=== PATIENT | female | born 1960 | race Caucasian/White ===

== ENCOUNTER → 2017-04-02 | Outpatient (CLI) | payer BC ==
[2015-03-20 13:10] VITALS: BP 159/84
--- NOTE | 2017-04-03 10:36 | US ---
HISTORY: Right-sided right back nodule Study: Ultrasound right-sided back nodule Comparison: None Technique: Multiple grayscale sonographic images were obtained. Findings: Sonographic evaluation was focused to a palpable nodule in the subcutaneous area of the right back. Resulting images demonstrated a 1.4 by 1 x 2.1 centimeter well-marginated hyperechoic subcutaneous n odule which appears nonvascular. This finding would seem most consistent with a lipoma. This area sh ould be followed clinically. Any rapid growth should prompt tissue sampling. IMPRESSION: Findings most consistent with a subcutaneous lipoma which should be followed clinically. Any rapid g rowth should prompt tissue sampling. Reported By:
== END ==
LOC: RAD 13:17
PROVIDERS: ATTEND Internal Medicine
DX: R19.09 Other intra-abdominal and pelvic swelling, mass and lump (principal)
CPT/HCPCS: 76705

== ENCOUNTER 2023-01-19 14:01 | Observation (INO) ==
[2023-01-19] MEDS ORDERED: LEVSIN/MAALOX/LIDOC VISC PO PRN (15:13)
[2023-01-19 15:35] LABS: BASOPHILS # (AUTO) 0.1 X10^3/uL (0.0-0.1); BASOPHILS % (AUTO) 0.9 % (0.2-1.0); EOSINOPHILS # (AUTO) 0.3 x10^3/uL (0.0-0.2); EOSINOPHILS % (AUTO) 3.5 % (0.9-2.9); HEMOGLOBIN 13.2 g/dL (12.0-16.0); LYMPHOCYTES # (AUTO) 2.6 X10^3/uL (1.3-2.9); LYMPHOCYTES % (AUTO) 31.8 % (21.0-51.0); MEAN CORPUSCULAR HEMOGLOBIN 29.7 pg (27.0-34.0); MEAN CORPUSCULAR HGB CONC 33.7 g/dL (33.0-35.0); MEAN PLATELET VOLUME 8.3 fL (7.4-11.0); MONOCYTES # (AUTO) 0.6 x10^3/uL (0.3-0.8); MONOCYTES % (AUTO) 7.4 % (0.0-13.0); NEUTROPHILS # (AUTO) 4.6 x10^3/uL (2.2-4.8); NEUTROPHILS % (AUTO) 56.4 % (42.0-75.0); RED BLOOD COUNT 4.43 X10^6/uL (3.5-5.4); WHITE BLOOD COUNT 8.1 X10^3/uL (3.6-10.0)
[2023-01-19 15:59] LABS: ALANINE AMINOTRANSFERASE 24 Units/L (12-78); ALBUMIN 3.7 g/dL (3.4-5.0); ALKALINE PHOSPHATASE 75 Units/L (46-116); AMYLASE 64 Units/L (25-115); ASPARTATE AMINO TRANSFERASE 16 Units/L (15-37); BLOOD UREA NITROGEN 23 mg/dL (7-18); CALCIUM 9.1 mg/dL (8.5-10.1); CARBON DIOXIDE 32.3 mmol/L (21-32); CHLORIDE 103 mmol/L (98-107); COR NA(FOR HYPERGLY) 142 mmol/L (136-145); CREATININE 0.97 mg/dL (0.55-1.02); LIPASE 195 Units/L (73-393); SODIUM 141 mmol/L (136-145); TOTAL PROTEIN 7.7 g/dL (6.4-8.2); eGFR NON BLACK RACES > 60 (>60)
[2023-01-19] MEDS: NS 1,000 ML IV 1,000 ML IV SCH (18:34)
[2023-01-19] MEDS: PROTONIX INJ 40 MG VIAL IVP SCH (18:35)
[2023-01-19] MEDS: PEPCID 20 MG VIAL 20 MG in NS 50 ML IV 50 ML IV SCH ×2 (18:35→20:31)
[2023-01-19] MEDS: LIPITOR TAB 40 MG PO SCH (20:32)
--- NOTE | 2023-01-20 00:28 | CT ---
HISTORYRefractory chest painSTUDYCHEST WITH [id number]/24/2020 CT reportTECHNIQUEMultiple axial images of the chest were obtained from the thoracic inlet to the upper abdomen after the administration of IV contrast. 100 milliliter Omnipaque 350 IV contrast utilized.. Dose reduction techniques including Automated Exposure Control (AEC) and adjustment of mA and kV were utilized.FINDINGSThis is not a pulmonary embolus protocol please note. However, no large central pulmonary embolus. Visualized thyroid appears mildly enlarged.Ascending thoracic aorta measures up to 3.6 centimeter diameter, no evidence for dissection with mild aortic valve calcifications evident. Mild coronary artery calcifications are noted. Heart size not significantly enlarged.No pleural or pericardial effusion.No discernible adenopathy.Upper abdomen unremarkable. Cholecystectomy clips noted.Bones show no lytic or destructive process with thoracic spondylosis.Lungs clear. No infiltrate. No suspicious pulmonary nodule.IMPRESSION- No infiltrate, no suspicious pulmonary nodule.- Mild coronary artery calcifications, mild aortic valve calcifications.Electronically signed by: Chester Canada (Jan 20, 2023 00:26:44)
--- NOTE | 2023-01-20 01:47 | RAD ---
HISTORYCHEST PAIN, SHORTNESS OF BREATH Relevant Clinical InformationSTUDYCHEST, 1 VIEWCOMPARISONApril 2022 frontal chest radiographFINDINGSThe lungs are well inflated and grossly clear. The heart size is prominent without overt failure.IMPRESSIONNothing acuteElectronically signed by: Eddie Carlos (Jan 20, 2023 01:47:04)
[2023-01-20] MEDS: NS 1,000 ML IV 1,000 ML IV SCH ×2 (06:05→20:48)
[2023-01-20 06:06] LABS: BASOPHILS # (AUTO) 0.1 X10^3/uL (0.0-0.1); BASOPHILS % (AUTO) 1.2 % (0.2-1.0); EOSINOPHILS # (AUTO) 0.3 x10^3/uL (0.0-0.2); EOSINOPHILS % (AUTO) 3.9 % (0.9-2.9); HEMATOCRIT 35.9 % (36.0-47.0); HEMOGLOBIN 12.1 g/dL (12.0-16.0); LYMPHOCYTES # (AUTO) 2.8 X10^3/uL (1.3-2.9); LYMPHOCYTES % (AUTO) 39.5 % (21.0-51.0); MEAN CORPUSCULAR HEMOGLOBIN 29.9 pg (27.0-34.0); MEAN CORPUSCULAR HGB CONC 33.8 g/dL (33.0-35.0); MEAN CORPUSCULAR VOLUME 88.4 fL (80.0-100.0); MEAN PLATELET VOLUME 8.7 fL (7.4-11.0); MONOCYTES # (AUTO) 0.6 x10^3/uL (0.3-0.8); MONOCYTES % (AUTO) 7.9 % (0.0-13.0); NEUTROPHILS # (AUTO) 3.4 x10^3/uL (2.2-4.8); NEUTROPHILS % (AUTO) 47.5 % (42.0-75.0); RED BLOOD COUNT 4.06 X10^6/uL (3.5-5.4); RED CELL DISTRIBUTION WIDTH 13.2 % (11.6-16.5); WHITE BLOOD COUNT 7.1 X10^3/uL (3.6-10.0)
[2023-01-20 06:17] LABS: ALANINE AMINOTRANSFERASE 24 Units/L (12-78); ALBUMIN 3.3 g/dL (3.4-5.0); ALKALINE PHOSPHATASE 71 Units/L (46-116); ASPARTATE AMINO TRANSFERASE 16 Units/L (15-37); BLOOD UREA NITROGEN 19 mg/dL (7-18); CALCIUM 8.7 mg/dL (8.5-10.1); CARBON DIOXIDE 31.4 mmol/L (21-32); CHLORIDE 104 mmol/L (98-107); COR CA(FOR HYPOALB) 9.3 mg/dL (8.5-10.1); COR NA(FOR HYPERGLY) 142 mmol/L (136-145); CREATININE 0.97 mg/dL (0.55-1.02); SODIUM 141 mmol/L (136-145); TOTAL PROTEIN 6.8 g/dL (6.4-8.2); eGFR NON BLACK RACES > 60 (>60)
--- NOTE | 2023-01-20 08:55 | EKG ---
Test Reason : CHEST PAIN Blood Pressure : */* mmHG Vent. Rate : 76 BPM Atrial Rate : 76 BPM P-R Int : 142 ms QRS Dur : 96 ms QT Int : 392 ms P-R-T Axes : 52 -16 68 degrees QTc Int : 441 ms Normal sinus rhythm Normal ECG When compared with ECG of 18-JAN-2023 15:00, (Unconfirmed) No significant change was found Confirmed by Topher Maldonado ([id number]) on 01/20/2023 11:15:47 AM Referred By: Confirmed By: Topher Maldonado
[2023-01-20] MEDS: LOVENOX INJ 40 MG SYR SC SCH (09:28)
[2023-01-20] MEDS: PEPCID 20 MG VIAL 20 MG in NS 50 ML IV 50 ML IV SCH ×2 (09:28→20:43)
[2023-01-20] MEDS: PROTONIX INJ 40 MG VIAL IVP SCH (09:29)
--- NOTE | 2023-01-20 12:37 | DR.H&P ---
H&P - History & Physical for Day of: H&P Date: 01/19/23 - Chief Complaint Chief Complaint: CHEST PAIN, SHORTNESS OF BREATH - History of Present Illness History of Present Illness: IS A 62 YEAR OLD PATIENT OF OURS. SHE HAS A PMH OF HTN, HYPERLIPIDEMIA, FIBROMYALGIA, ARTHRITIS, DM II, APPENDECTOMY, CHOLECYSTECTOMY, AND HYSTERECTOMY. SHE IS A DIRECT ADMISSION FROM THE OFFICE, OBSERVATION STATUS, FOR TREATMENT OF ACUTE CHEST PAIN AND SHORTNESS OF BREATH. PATIENT REPORTS THAT CHEST PAIN STARTED THIS PAST WEDNESDAY. PAIN IS LOCATED IN THE CENTER OF HER CHEST AND RADIATES TO HER BACK, SHOULDERS, AND BEHIND HER EARS. PAIN IS DESCRIBED SHARP AND CRAMPING. SHORTNESS OF BREATH IS WORSE WHEN PAIN IS PRESENT. ADDITIONALY, SHE COMPLAINS OF ASSOCIATED NAUSEA. ON ARRIVAL TO THE HOSPITAL, VITALS WERE: 98.3-79-22-98%-140/73. LABS WERE OBTAINED. WBC 8.1, RBC 4.43, HGB 13.2, HCT 39.0, PLT COUNT 303, SODIUM 141, POTASSIUM 4.0, CHLORIDE 103, CARBON DIOXIDE 32.3, BUN 23, CREATININE 0.97, GLUCOSE 132, CALCIUM 9.1, AST 16, ALT 24, ALK PHOS 75, TROPONIN 8.0, ALBUMIN 3.7, AMYLASE 64, LIPASE 195. A CHEST CT WITH CONTRAST WAS OBTAINED AND REVEALED: No infiltrate, no suspicious pulmonary nodule. Mild coronary artery calcifications, mild aortic valve calcifications. EKG REVEALED NORMAL SINUS RHYTHM WITH HR 76. ECHO REVEALED AN EJECTION FRACTION OF 64%. SHE WAS STARTED ON NORMAL SALINE AT 75 ML/HR, PEPCIC 20MG IV Q12H, PROTONIX 40MG IV DAILY, GI COCKTAIL 30ML BID PRN, LOVENOX 40MG SC DAILY, AND LIPITOR 40MG HX. WE WILL RESUME HER HOME MEDICATIONS OF ECOTRIN, MULTIVITAMINS, VITAMIN D3, DULOXETINE, OLMESARTAN-HCTZ, FEXOFENADINE, AND POTASSIUM CHLORIDE. WE WILL OBTAIN SERIAL CARDIAC ENZYME LEVELS. OTHERWISE, WE WILL FOLLOW-UP WITH AM LABS AND CONTINUE TO MONITOR. TIME SPENT ON CLINICAL ASSESSMENT, REVIWING LABS AND IMAGING, DECISION MAKING, AND DOCUMENTATION GREATER THAN 75 MINUTES. - Past Medical History Past Medical History: Arthritis, Diabetes, Dyslipidemia, Hypertension - Past Surgical History Surgical History: Appendectomy, Cholecystectomy, Hysterectomy - Family History Family Medical History: Diabetes Mellitus, [place], Coronary Artery Disease, Hypertension - Social History Does patient currently use any type of tobacco product: No Have you used tobacco products in the last 12 months: No Type of Tobacco Use: None Alcohol Use: None Drug Use: None - Medications Home Medications: cefuroxime Allergy (Verified 01/18/23 20:19) Penicillins Allergy (Verified 01/18/23 20:19) CONTINUE taking the following medications aspirin 81 mg tablet,delayed release 81 mg PO DAILY 01/19/23 [History] cholecalciferol (vitamin D3) 125 mcg (5,000 unit) tablet (Vitamin D3) 125 mcg PO DAILY 01/19/23 [History] duloxetine 60 mg capsule,delayed release 60 mg PO DAILY 01/19/23 [History] fexofenadine 180 mg tablet 180 mg PO HS 01/19/23 [History] multivitamin 1 tab PO DAILY 01/19/23 [History] olmesartan 40 mg-hydrochlorothiazide 25 mg tablet 1 tab PO DAILY 01/19/23 [History] pantoprazole 40 mg tablet,delayed release 40 mg PO DAILY 01/19/23 [History] potassium chloride 20 mEq tablet,extended release(part/cryst) (Klor-Con M) 20 meq PO QDAY 01/19/23 [History] - Review of Systems Constitutional: Weakness Eyes: No Symptoms Reported ENT: No Symptoms Reported Respiratory: Shortness of Breath, SOB with Excertion Cardiovascular: Chest Pain Gastrointestinal: No Symptoms Reported Genitourinary: No Symptoms Reported Musculoskeletal: No Symptoms Reported Skin: No Symptoms Reported Neurological: No Symptoms Reported - Physical Exam Vital Signs: Temperature 97.9 F Pulse Rate [Brachial] 78 Respiratory Rate 20 Blood Pressure [Left Arm] 132/61 Blood Pressure 153/67 O2 Sat by Pulse Oximetry 100 Oriented: Normal Eyes: Normal Ear: Normal Nose: Normal Throat: Normal Respiratory: Diminished Throughout Cardiovascular: Normal : Normal Auscultation: Bowel Sounds: Normal Palpation: Normal Tenderness: Normal Skin: Normal Musculoskeletal: Normal Psychiatric: Normal Mood Description: Calm Affect: Normal Speech Pattern: Clear - Assessment/Plan (1) Chest pain, rule out acute myocardial infarction Status: Acute Plan: NORMAL SALINE AT 75 ML/HR, PEPCIC 20MG IV Q12H, PROTONIX 40MG IV DAILY, GI COCKTAIL 30ML BID PRN, LOVENOX 40MG SC DAILY, AND LIPITOR 40MG HX. WE WILL RESUME HER HOME MEDICATIONS OF ECOTRIN, MULTIVITAMINS, VITAMIN D3, DULOXETINE, OLMESARTAN-HCTZ, FEXOFENADINE, AND POTASSIUM CHLORIDE. SERIAL CARDIAC ENZYMES (2) Shortness of breath Status: Acute (3) HTN (hypertension) Qualifiers: Hypertension type: primary hypertension Qualified Code(s): I10 - Essential (primary) hypertension Status: Chronic (4) Hyperlipidemia Qualifiers: Hyperlipidemia type: mixed hyperlipidemia Qualified Code(s): E78.2 - Mixed hyperlipidemia Status: Chronic (5) DM II (diabetes mellitus, type II), controlled Qualifiers: Diabetes mellitus mcfp insulin use: with mcfp use Diabetes mellitus complication status: without complication Qualified Code(s): E11.9 - Type 2 diabetes mellitus without complications; Z79.4 - custodial (current) use of insulin Status: Chronic - Allergies Allergies/Adverse Reactions: Allergies Allergy/AdvReac Type Severity Reaction Status Date / Time cefuroxime Allergy Verified 01/18/23 20:19 Penicillins Allergy Verified 01/18/23 20:19
[2023-01-20] MEDS: CYMBALTA PO SCH (13:28)
[2023-01-20] MEDS: HYDROCHLOROTHIAZIDE 25 MG TAB PO SCH (13:28)
[2023-01-20] MEDS: BENICAR TAB 40 MG PO SCH (13:29)
[2023-01-20] MEDS: ASPIRIN EC 81 MG PO SCH (13:29)
[2023-01-20] MEDS: VITAMIN D3 125 mcg (5,000 UNITS) PO SCH (13:29)
[2023-01-20] MEDS: TAB-A-VITE PO SCH (13:30)
[2023-01-20] MEDS: K-DUR TAB 20 MEQ PO SCH (13:56)
[2023-01-20] MEDS ORDERED: ALLEGRA ONE (20:29)
[2023-01-20] MEDS: LIPITOR TAB 40 MG PO SCH (20:43)
[2023-01-20] MEDS ORDERED: ALLEGRA PO SCH (21:00)
[2023-01-20] MEDS ORDERED: TYLENOL 325 MG TAB PO PRN (23:19)
[2023-01-21 05:16] LABS: BASOPHILS # (AUTO) 0.1 X10^3/uL (0.0-0.1); BASOPHILS % (AUTO) 1.3 % (0.2-1.0); EOSINOPHILS # (AUTO) 0.3 x10^3/uL (0.0-0.2); EOSINOPHILS % (AUTO) 3.6 % (0.9-2.9); HEMATOCRIT 33.3 % (36.0-47.0); HEMOGLOBIN 11.3 g/dL (12.0-16.0); LYMPHOCYTES # (AUTO) 2.7 X10^3/uL (1.3-2.9); LYMPHOCYTES % (AUTO) 37.5 % (21.0-51.0); MEAN CORPUSCULAR HEMOGLOBIN 29.9 pg (27.0-34.0); MEAN CORPUSCULAR VOLUME 87.8 fL (80.0-100.0); MEAN PLATELET VOLUME 9.4 fL (7.4-11.0); MONOCYTES # (AUTO) 0.6 x10^3/uL (0.3-0.8); MONOCYTES % (AUTO) 8.2 % (0.0-13.0); NEUTROPHILS # (AUTO) 3.5 x10^3/uL (2.2-4.8); NEUTROPHILS % (AUTO) 49.4 % (42.0-75.0); RED BLOOD COUNT 3.79 X10^6/uL (3.5-5.4); RED CELL DISTRIBUTION WIDTH 12.7 % (11.6-16.5); WHITE BLOOD COUNT 7.1 X10^3/uL (3.6-10.0)
[2023-01-21 05:33] LABS: ALANINE AMINOTRANSFERASE 23 Units/L (12-78); ALBUMIN 3.2 g/dL (3.4-5.0); ALKALINE PHOSPHATASE 66 Units/L (46-116); ASPARTATE AMINO TRANSFERASE 15 Units/L (15-37); BLOOD UREA NITROGEN 18 mg/dL (7-18); CALCIUM 8.9 mg/dL (8.5-10.1); CHLORIDE 105 mmol/L (98-107); COR CA(FOR HYPOALB) 9.5 mg/dL (8.5-10.1); COR NA(FOR HYPERGLY) 142 mmol/L (136-145); CREATININE 0.94 mg/dL (0.55-1.02); SODIUM 141 mmol/L (136-145); TOTAL PROTEIN 6.6 g/dL (6.4-8.2); eGFR NON BLACK RACES > 60 (>60)
[2023-01-21] MEDS: NS 1,000 ML IV 1,000 ML IV SCH (05:42)
[2023-01-21] MEDS: CYMBALTA PO SCH (08:27)
[2023-01-21] MEDS: TAB-A-VITE PO SCH (08:27)
[2023-01-21] MEDS: ASPIRIN EC 81 MG PO SCH (08:27)
[2023-01-21] MEDS: BENICAR TAB 40 MG PO SCH (08:27)
[2023-01-21] MEDS: VITAMIN D3 125 mcg (5,000 UNITS) PO SCH (08:27)
[2023-01-21] MEDS: HYDROCHLOROTHIAZIDE 25 MG TAB PO SCH (08:27)
[2023-01-21] MEDS: PROTONIX INJ 40 MG VIAL IVP SCH (08:28)
[2023-01-21] MEDS: LOVENOX INJ 40 MG SYR SC SCH (08:28)
[2023-01-21] MEDS: PEPCID 20 MG VIAL 20 MG in NS 50 ML IV 50 ML IV SCH (08:28)
[2023-01-21] MEDS: K-DUR TAB 20 MEQ PO SCH (08:38)
[2023-01-21 09:10] VITALS: BP 132/62
== END 2023-01-21 11:45 | disposition home or self-care (01) ==
LOC: MED/SURG
PROVIDERS: ADMIT Internal Medicine; ATTEND Internal Medicine
DX: E11.65 Type 2 diabetes mellitus with hyperglycemia; R07.89 Other chest pain; M79.7 Fibromyalgia; I10 Essential (primary) hypertension; R06.02 Shortness of breath; Z79.4 Long term (current) use of insulin; E78.2 Mixed hyperlipidemia; M19.90 Unspecified osteoarthritis, unspecified site